=== PATIENT | female | born 2000 | race Two or more races ===

== ENCOUNTER 2024-10-11 07:50 | Emergency (ER) | payer OTHER ==
[2024-10-11 07:56] VITALS: BP 155/94; PULSE 101; RESP 20; TEMP 97.9; BMI 39.4
[2024-10-11 08:47] LABS: THROAT:GRP A STREP NOT DETECTED (NOTDETECTED)
[2024-10-11] MEDS ORDERED: ACETAMINOPHEN 500 MG TABLET (FP) ONE (09:06)
[2024-10-11] MEDS: ACETAMINOPHEN 500 MG TABLET (FP) PO ONE (09:07)
== END 2024-10-11 09:56 | disposition home or self-care (01) ==
LOC: JER 07:50
DX: R05.9 Cough, unspecified (principal); R09.81 Nasal congestion; R68.83 Chills (without fever); J22 Unspecified acute lower respiratory infection; Z20.822 Contact with and (suspected) exposure to COVID-19
CPT/HCPCS: 0241U-QW; 87651; 99283-25